=== PATIENT | female | born 1960 | race Caucasian/White ===

== ENCOUNTER 2023-06-02 23:08 | Emergency (ER) | payer BC, OTHER ==
[2023-06-02 23:35] VITALS: BP 152/71; PULSE 84; RESP 20; TEMP 97.9; BMI 23.6
[2023-06-02] MEDS ORDERED: LIDOCAINE 5% TOPICAL PATCH TP ONE (23:56)
[2023-06-02] MEDS ORDERED: KETOROLAC TROMETHAMINE 15 MG/ML VIAL IVPUSH ONE (23:56)
[2023-06-02] MEDS ORDERED: METHOCARBAMOL 500 MG TABLET PO ONE (23:58)
[2023-06-03] MEDS ORDERED: KETOROLAC TROMETHAMINE 10 MG TABLET PO ONE (00:07)
[2023-06-03] MEDS ORDERED: LIDOCAINE 5% TOPICAL PATCH ONE (00:08)
[2023-06-03] MEDS ORDERED: METHOCARBAMOL 500 MG TABLET ONE (00:18)
[2023-06-03] MEDS ORDERED: METHOCARBAMOL 500 MG TABLET PO ONE (01:24)
[2023-06-03] MEDS ORDERED: LIDOCAINE PATCH REMOVAL MC ONE (12:00)
== END 2023-06-03 01:46 | disposition home or self-care (01) ==
LOC: JER 23:08
PROC: 3E0333Z Introduction of Anti-inflammatory into Peripheral Vein, Percutaneous Approach (ICD-10-PCS; principal; 2023-06-02)
DX: M25.511 Pain in right shoulder (principal); M54.2 Cervicalgia; X50.1XXA Overexertion from prolonged static or awkward postures, initial encounter; Y92.000 Kitchen of unspecified non-institutional (private) residence as the place of occurrence of the external cause
CPT/HCPCS: 71045-TC-FY; 73030-TC-RT-FY; 93005; 93010; 99284-25